=== PATIENT | male | born 1940 | race Caucasian/White ===

== ENCOUNTER → 2016-08-22 | Outpatient (CLI) | payer MEDICARE ==
[~2016-08-22] MED LIST: CIPROFLOXACIN500 M2 PO; FLAGYL 500MG.500 MG PO; FLOMAX0.4 MG PO; GLUCOSAMINE & C1 CA1 PO; IBUPROFEN 600M600 MG PO; METRONIDAZOLE500 MG PO; PERCOCET 325 MG1 TA3 PO; PREDNISONE 10MG10 MG PO; PRILOSEC40 MG PO; TYLENOL ES500 MG PO; [UNRECOGNIZED DRUG - OTHER] RE
[2016-08-22 10:49] LABS: BILIRUBIN, INDIRECT 0.96 mg/dL (0-0.9)
== END ==
LOC: LAB 09:01
PROVIDERS: Internal Medicine Cardiovascular Disease
DX: R07.9 Chest pain, unspecified (principal); R06.00 Dyspnea, unspecified; R94.31 Abnormal electrocardiogram [ECG] [EKG]; R42 Dizziness and giddiness; R00.0 Tachycardia, unspecified; R97.20 Elevated prostate specific antigen [PSA]; E78.5 Hyperlipidemia, unspecified; Z12.5 Encounter for screening for malignant neoplasm of prostate

== ENCOUNTER → 2017-03-15 | Outpatient (CLI) | payer MEDICARE ==
--- NOTE | 2017-03-16 15:42 | RADIOLOGY REPORT PS360 ---
PROCEDURE: 2-D M-mode and color Doppler study INDICATIONS FOR THE TEST: Chest pain COPD Heart Murmur Tobacco Smoking Palpitations FatigueX Syncope Edema HypertensionXDiabetes Mellitus Rheumatic Fever SOB DOEXObesity HyperlipidemiaX Family History HD Additional History CAD PATIENT INFORMATION HEIGHT: 73 WEIGHT:220 GENDER: Male B/P:127/71 2-D/M-MODE INTERPRETATION: 2-D MEASUREMENTS OBSERVED VALUES IN CMS Right Ventricular Dimension (RVDd) 2.7 Interventricular Septum (Thickness)(IVsd) 1.0 Left Ventricular Internal Dimensions(LVIDd) 5.7 Left Ventricular Posterior Wall (Thickness)(LVPWd) 1.2 Aortic Root 3.7 Aortic Cusp Separation 2.1 Left Atrial Dimensions (LAD) 4.0 2D 1. Left atrium is mildly enlarged, left ventricle is normal size, there is mild concentric left ventricular hypertrophy, visually estimated ejection fraction 55% with no obvious regional wall motion abnormality. 2. The right atrium and right ventricle are moderately enlarged, contractility of the right ventricle is normal. 3. The aortic valve is minimally thickened and fibrosed. 4. The mitral and tricuspid valve leaflets are minimally thickened. 5. The pulmonic valve is poorly visualized. 6. No significant pericardial effusion noted. DOPPLER INTERROGATION: Doppler interrogation of the aortic, mitral and tricuspid valvular presence of mild mitral and tricuspid regurgitation, calculated right ventricular systolic pressure is 39 mmHg consistent with mild pulmonary hypertension, grade 1 diastolic dysfunction seen without tissue Doppler evidence of raised left atrial pressure. CONCLUSION: 1. Mildly left atrium, normal left ventricular size, mild concentric left ventricular hypertrophy, visually estimated ejection fraction 55% with no obvious regional wall motion abnormality, grade 1 diastolic dysfunction seen without tissue Doppler evidence of raised left atrial pressure. 2. Moderately enlarged right atrium and right ventricle, contractility of the right ventricle is normal 3. Mild mitral and tricuspid regurgitation, calculated right ventricular systolic pressure of 39 mmHg consistent with mild pulmonary hypertension. 4. No significant pericardial effusion noted.
== END ==
LOC: RT 15:13
DX: R06.09 Other forms of dyspnea (principal); I25.10 Atherosclerotic heart disease of native coronary artery without angina pectoris; E78.5 Hyperlipidemia, unspecified

== ENCOUNTER → 2017-03-20 | Outpatient (CLI) | payer MEDICARE ==
[2017-03-20 09:06] LABS: BUN 17 mg/dL (7-18)
[2017-03-20 09:08] LABS: GFR (ESTIMATED) 65 ML/MIN (>60)
== END ==
LOC: LAB 08:40
PROVIDERS: Internal Medicine Cardiovascular Disease
DX: I25.10 Atherosclerotic heart disease of native coronary artery without angina pectoris (principal); E78.5 Hyperlipidemia, unspecified; I10 Essential (primary) hypertension; I27.20 Pulmonary hypertension, unspecified; R06.00 Dyspnea, unspecified

== ENCOUNTER → 2017-03-21 | Outpatient (CLI) | payer MEDICARE ==
--- NOTE | 2017-03-21 13:28 | RADIOLOGY REPORT PS360 ---
CTA-CHEST HISTORY: Shortness of air, dyspnea CAD,HTN,DYSPNEA, ORDERING PHYSICIAN: LACEY TABOR MD PATIENT AGE: 76 years TECHNIQUE: Helical acquisition obtained following the bolus administration of 60 mL of Isovue 370 followed by a saline bolus. Axial, sagittal, and coronal reformatted images are generated and reviewed. COMPARISON: None FINDINGS: There is no evidence of pulmonary embolism. Pulmonary arteries are normal in caliber. There is no evidence of aortic aneurysm. Normal heart size. No evidence pericardial effusion. There are coronary artery calcifications/stents noted. There are minimal atelectatic or fibrotic changes in the right lung base. No mediastinal or hilar mass or adenopathy. The lungs are free of acute infiltrate. There is a small hiatal hernia. Upper abdominal images demonstrates mild splenomegaly at 15 cm. IMPRESSION: No acute finding. No evidence of pulmonary embolus. Splenomegaly
== END ==
LOC: RAD 08:24
DX: R06.00 Dyspnea, unspecified (principal); I27.20 Pulmonary hypertension, unspecified; I10 Essential (primary) hypertension; I25.10 Atherosclerotic heart disease of native coronary artery without angina pectoris; E78.5 Hyperlipidemia, unspecified
CPT/HCPCS: Q9967

== ENCOUNTER → 2017-04-10 | Outpatient (CLI) | payer MEDICARE | LOC: RT 13:44 | DX: I27.20 Pulmonary hypertension, unspecified (principal) ==

== ENCOUNTER → 2017-04-13 | Outpatient (CLI) | payer MEDICARE ==
--- NOTE | 2017-04-13 12:30 | RADIOLOGY REPORT PS360 ---
History and Indications: Hypertension, hyperlipidemia, tobacco use, family history abnormal echo Procedure: Patient received a 0.4 mg of Lexiscan, resting heart rate was 48 bpm resting blood pressure 118/67, with Lexiscan maximum heart rate achieved was 62 bpm, which is less than 85% of the maximum predicted heart rate and a blood pressure was 104/55. With Lexiscan patient complained of shortness of breath and nausea. Electrocardiogram: Resting electrocardiogram showed the underlying rhythm is probably sinus bradycardia premature atrial complex, possibility of atrial fibrillation cannot be excluded as definite P base were difficult to identify. With Lexiscan there is less than 1.[address] segment depression noted from the baseline EKG. The EKG portion of the Lexiscan Myoview is nondiagnostic. Cardiac stress and resting SPECT images: Cardiac stress and rest SPECT images were obtained using technetium 99 Myoview 10.1 mCi at rest and 30.4 mCi at stress, gated SPECT further analysis of segmental wall motion and calculation of ejection fraction. Cardiac stress and rest SPECT images show uniform myocardial activity without any segmental perfusion abnormality, computer derived ejection fraction 55% no obvious regional wall, right ventricle is normal size and contractility. Conclusion: 1. The EKG portion of the Lexiscan Myoview is nondiagnostic. 2. No obvious scintigraphic evidence of reversible ischemia seen, computer derived ejection fraction 55% with no obvious regional wall motion abnormality, right ventricle is normal size and contractility.
== END ==
LOC: RAD 06:25
DX: I25.10 Atherosclerotic heart disease of native coronary artery without angina pectoris (principal); I10 Essential (primary) hypertension; I20.9 Angina pectoris, unspecified; R06.00 Dyspnea, unspecified
CPT/HCPCS: A9502; J2785